=== PATIENT | female | born 1975 | race Caucasian/White ===

== ENCOUNTER 2021-06-20 12:36 | Emergency (ER) | payer OTHER ==
[~2021-06-20] VITALS: Ht 167.6 cm; Wt 72.1 kg
[~2021-06-20 12:36] MED LIST: ACETAMINOPHEN500 M1 PO; AMOXICILLIN500 MG PO; COLACE100 MG PO; ERY-TAB250 MG PO; ESTRADIOL VG; JUICE FESTIVE PO; MAG-OXIDE 400M400 MG PO; MELATONIN5 M2 PO; MIRALAX17 GM PO; OXY-IR 5MG5 MG PO; PROTONIX 40MG T40 MG PO; TRIPLE HELIX COL1 GM PO; VITAMIN D3125 MC2 PO
[2021-06-20 14:51] LABS: BASOPHIL 0.1 % (0-2); EOSINOPHIL 0.1 % (0-5); HGB 13.5 g/dl (12.5-16.0); LYMPHOCYTE 13.4 % (15-48); MCH 31.8 pg (25.0-31.0); MCHC 35.5 g/dL (32.0-36.0); MCV 89.6 fL (78.0-100.0); MONOCYTE 6.3 % (0-12); MPV 9.7 fL (6.0-9.5); NEUTROPHIL 79.7 % (41-80); NRBC 0; PLT 325 K/uL (150-400); RBC 4.24 M/uL (4.20-5.40); RDW 11.7 % (11.5-14.0); WBC 6.9 K/uL (4.0-10.5)
[2021-06-20 15:23] LABS: BUN/CREAT RATIO (CALC) 12.7 RATIO; CREATININE 0.55 mg/dL (0.51-0.95); POTASSIUM 3.7 mmol/L (3.5-5.1)
[2021-06-20] MEDS ORDERED: MEDROL 4MG DOSEP4 MG PO (16:31)
== END 2021-06-20 16:41 | disposition home or self-care (01) ==
LOC: FER 12:36
PROVIDERS: Nurse Practitioner Family
DX: U07.1 COVID-19 (principal)
CPT/HCPCS: 36415; 80048; 85025; J1100; J1885; J2405; J7030

== ENCOUNTER 2022-01-12 09:05 | Emergency (ER) | payer OTHER ==
[~2022-01-12 09:05] MED LIST changes: +MEDROL 4MG DOSEP4 MG PO
[2022-01-12 11:18] LABS: BASOPHIL 0.5 % (0-2); EOSINOPHIL 1.2 % (0-5); HCT 39.5 % (37.0-47.0); HGB 13.6 g/dl (12.5-16.0); LYMPHOCYTE 21.9 % (15-48); MCH 32.4 pg (25.0-31.0); MCHC 34.4 g/dL (32.0-36.0); MONOCYTE 7.5 % (0-12); MPV 10.3 fL (6.0-9.5); NEUTROPHIL 68.1 % (41-80); NRBC 0; PLT 293 K/uL (150-400); RDW 12.1 % (11.5-14.0); WBC 5.9 K/uL (4.0-10.5)
[2022-01-12 11:49] LABS: ALBUMIN 4.4 g/dL (3.4-5.0); BILIRUBIN - TOTAL 0.4 mg/dL (0.2-1.0); BUN/CREAT RATIO (CALC) 13.4 RATIO; CREATININE 0.67 mg/dL (0.51-0.95); GLOBULIN (CALCULATION) 3.9 g/dL; POTASSIUM 3.9 mmol/L (3.5-5.1); TOTAL PROTEIN 8.3 g/dL (6.4-8.2)
[2022-01-12] MEDS ORDERED: NAPROXEN500 MG PO (12:21)
== END 2022-01-12 12:53 | disposition home or self-care (01) ==
LOC: FER 09:05
PROVIDERS: Emergency Medicine
DX: R20.2 Paresthesia of skin (principal); Z88.5 Allergy status to narcotic agent; Z88.2 Allergy status to sulfonamides; Z28.310 Unvaccinated for COVID-19
CPT/HCPCS: 36415; 70450; 72125; 80053; 84439; 84443; 85025

== ENCOUNTER → 2022-04-23 | Day surgery (SDC) | payer OTHER ==
[~2022-04-23] VITALS: Ht 167.6 cm; Wt 66.7 kg
[~2022-04-23] MED LIST changes: +MELOXICAM15 MG PO; +NAPROXEN500 MG PO
== END | disposition home or self-care (01) ==
LOC: FAS 06:13
DX: K92.1 Melena (principal); K62.89 Other specified diseases of anus and rectum; K64.8 Other hemorrhoids; Z98.890 Other specified postprocedural states; Z88.2 Allergy status to sulfonamides; Z88.8 Allergy status to other drugs, medicaments and biological substances
CPT/HCPCS: J2704; J7120